=== PATIENT | female | born 1980 | race American Indian/Alaskan Native ===

== ENCOUNTER 2019-02-02 13:11 | Emergency (ER) | payer OTHER, MEDICAID ==
[2019-02-02 13:21] VITALS: O2SAT 99
--- NOTE | 2019-02-02 14:41 | RAD ---
Date of service: 02/02/2019 PROCEDURE: Cervical Spine Radiographs. HISTORY: Pain. COMPARISON: None available. FINDINGS: Upper cervical spine obscured on frontal view by the patient's hair clip which could not be removed. Straightening of the normal cervical lordosis may be related to muscle spasm or positioning. Multilevel degenerative changes including prominent osteophyte formation at C4-C5 with intervertebral disc space narrowing most prominent at that same level. No acute displaced fracture identified. Superior most dens tip obscured. No prevertebral soft tissue swelling. IMPRESSION: Straightening of the normal cervical lordosis may be related to muscle spasm or positioning. Multilevel degenerative changes including prominent osteophyte formation at C4-C5 with intervertebral disc space narrowing most prominent at that same level. Superior most dens tip obscured. No acute displaced fracture identified.
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
[2019-02-02 15:44] VITALS: BP 150/87; PULSE 79; RESP 20; TEMP 98.7
== END 2019-02-02 15:44 | disposition home or self-care (01) ==
LOC: C.ER 13:11
DX: S16.1XXA Strain of muscle, fascia and tendon at neck level, initial encounter (principal); S39.012A Strain of muscle, fascia and tendon of lower back, initial encounter; V49.40XA Driver injured in collision with unspecified motor vehicles in traffic accident, initial encounter; W22.10XA Striking against or struck by unspecified automobile airbag, initial encounter; Y92.410 Unspecified street and highway as the place of occurrence of the external cause
CPT/HCPCS: 72040; 72100; 96372; 99284; J1885